=== PATIENT | female | born 1935 | race Caucasian/White ===

== ENCOUNTER 2020-09-29 11:23 | Day surgery (SDC) | payer MEDICARE, OTHER ==
[~2020-09-29] VITALS: Ht 175.3 cm; Wt 65.5 kg
--- NOTE | ~2020-09-29 | OP ---
PATIENT NAME: JONO MAGALLON MEDICAL RECORD: [id number] :37 LOCATION:[facility] ADMISSION DATE: SURGEON: SUZANNA BHAT DO DATE OF OPERATION: 09/29/2020 DICTATING PHYSICIAN: Suzanna Bhat DO PROCEDURE: EGD with biopsies and balloon dilation. INDICATION FOR PROCEDURE: GERD, Globus sensation, vocal fatigue. SCOPE: Olympus video gastroscope. MEDICATIONS: Propofol 180 mg IV per Anesthesia. ESTIMATED BLOOD LOSS: Minimal. COMPLICATIONS: None. FINDINGS: Informed consent was given. The patient was made comfortable with the above medication. After reaching an adequate level of sedation by slow IV push, the patient was placed on her left side. The endoscope was advanced under direct visualization through the mouth to the second portion of the duodenum with ease. The cricopharyngeus, proximal esophagus, and middle esophagus appeared normal. In the distal esophagus and down to the GE junction, there was some mild esophageal stenosis and evidence of LA class A reflux-induced esophagitis. The distal esophagus and GE junction were dilated up to 18 mm in maximum diameter using a CRE dilating balloon through the endoscope under direct visualization. The endoscope was advanced beyond the GE junction into the stomach and retroflexed to view the cardia and fundus, which appeared normal. The body of the stomach as well as the antrum and prepyloric regions appeared normal. Cold forceps biopsies were taken from the antrum and incisura to submit for histopathology and to rule out the presence of H. pylori. The endoscope was advanced beyond the pylorus into the duodenum, which appeared normal to the second portion. Cold forceps biopsies were randomly taken to submit for histopathology. The endoscope was withdrawn from the patient. The patient tolerated the procedure well and there were no complications. IMPRESSION: 1. LA class A reflux-induced esophagitis. 2. Esophageal stenosis, dilated to 18 mm. 3. Otherwise, normal upper endoscopy. PLAN: 1. Discharge home when recovery parameters are met. 2. Follow up biopsy specimen results. 3. GERD diet and reflux precautions. 4. Continue current medications. 5. Consider pH study if ongoing concern for reflux, which is contributing to voice changes and potentially aspiration. 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
[2020-09-29 12:03] LABS: BASOPHILS 0.2 % (0-2); EOSINOPHILS 2.1 % (0-7); HEMATOCRIT 39.8 % (36.0-48.0); HEMOGLOBIN 13.1 g/dL (12-16); IMMATURE GRANULOCYTES 0.3 % (0-5); LYMPHOCYTE ABS# 2.08 10x3/uL (1.18-3.74); LYMPHOCYTES 35.7 % (15-50); MCHC 32.9 g/dL (31.0-37.0); MCV 94.1 fL (80.0-100.0); MEAN PLATELET VOLUME 11.6 fL (7.4-10.4); MONOCYTES 8.2 % (2-11); NEUTROPHIL ABS# 3.11 10x3/uL (1.56-6.13); NEUTROPHILS 53.5 % (40-80); PLATELET COUNT 161 10x3/uL (130-400); RBC 4.23 10x6/uL (4.00-5.40); RDW 12.5 % (11.5-14.5); WBC 5.8 10x3/uL (4.8-10.8)
[2020-09-29 12:25] LABS: ALBUMIN 3.7 g/dL (3.4-5.0); ANION GAP 8.5 mmol/L (8-16); BILIRUBIN - TOTAL 0.43 mg/dL (0.2-1.3); CALCIUM 8.8 mg/dL (8.5-10.1); CARBON DIOXIDE 31.1 mmol/L (21.0-32.0); CREATININE - SERUM 0.8 mg/dL (0.6-1.3); POTASSIUM - SERUM 3.6 mmol/L (3.5-5.1); PROTEIN - SERUM 6.9 g/dL (6.4-8.2)
[2020-09-29] MEDS ORDERED: TRAZODONE HCL50 MG PO (12:48)
[2020-09-29] MEDS ORDERED: KLONOPIN0.5 MG PO (12:48)
[2020-09-29] MEDS ORDERED: VITAMIN D-40010 MCG PO (12:50)
[2020-09-29] MEDS ORDERED: ZYRTEC10 MG PO (12:50)
[2020-09-29] MEDS ORDERED: MAGNESIUM OXID250 MG PO (12:51)
[2020-09-29 12:58] LABS: INR 1.06 (0.85-1.17); PROTIME 12.8 SECONDS (11.6-15.0)
[2020-09-29 13:04] VITALS: BP 141/71; Ht 175.3 cm; Wt 65.5 kg
--- NOTE | 2020-09-29 13:10 | NUR ---
IV STARTED WITH 22G ANGIOCATH IN RIGHT WRIST, TOLERATED WELL
--- NOTE | 2020-09-29 14:46 | NUR ---
GERD HANDOUT AND INSTRUCTIONS GIVEN. IV D/C'D WITH CANNULA INTACT, PRESSURE HELD AND DRSG PLACED. OTHER DISCHARGE INSTRUCTIONS GIVEN AND PT AND DAUGHTER VERBALIZED AN UNDERSTANDING.
== END 2020-09-29 14:35 | disposition home or self-care (01) ==
LOC: D.OPS 11:23
PROVIDERS: ATTEND Internal Medicine Gastroenterology
DX: R09.89 Other specified symptoms and signs involving the circulatory and respiratory systems (principal); R53.82 Chronic fatigue, unspecified; K21.00 Gastro-esophageal reflux disease with esophagitis, without bleeding; K22.2 Esophageal obstruction; R49.8 Other voice and resonance disorders